=== PATIENT | female | born 1970 | race Two or more races ===

== ENCOUNTER 2024-08-21 07:57 | Inpatient (IN) | payer MEDICAID ==
[~2024-08-21] VITALS: Ht 165.1 cm; Wt 86.6 kg
--- NOTE | 2024-08-21 08:18 | ED.PDOC ---
History of Present Illness HPI Comments 54F presents to the ER w/ no prior Hx associated to the c/c of ABD pain. Pt reports on having Left sided ABD pain which radiates to the left flank w/ periumbilical pain, "for a while", but has had mild pain during urination which is constant but fluctuates w/ pain everyday. Pt states that when she urinates t here is "air" which causes the pain. PMHx of DM and HTN. SHx of . Denies chills, fever, N/V/D, SOB, CP or no other associated symptoms, modifiers, recent injuries or sick contacts at this time. Time Seen by MD: 08:10 Primary Care Provider: unknown Reviewed Notes: Nurses Notes, Medications, Allergies Allergies: Coded Allergies: No Known Drug Allergy (Verified Allergy, Unknown, 03/23/22) Home Meds Reported Medications Insulin Glargine (Lantus Solostar) 100 Unit/Ml Inj, 10 UNITS SC TID 08/21/24 Fenofibrate Micronized (Fenofibrate) 134 Mg Cap, 1 CAP PO DAILY 08/21/24 Gabapentin (Gabapentin) 300 Mg Cap, PO 08/21/24 Amlodipine Besylate (Amlodipine Besylate) 10 Mg Tab, 1 TAB PO DAILY 08/21/24 Information Source: Patient Mode of Arrival: Ambulatory Severity: Moderate Timing: Days Duration: Since onset, Days Prehospital treatment: None Past Medical History PAST MEDICAL HISTORY: DM, HTN 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 Family History Family History: Reviewed,noncontributory to illness, Unknown Social History Smoker: Non-Smoker Alcohol: Denies ETOH Use Drugs: Denies Drug Use Lives In: Home Constitutional: denies: chills, diaphoresis, fatigue, fever, malaise, sweats, weakness, others EENTM: denies: blurred vision, double vision, ear bleeding, ear discharge, ear drainage, ear pain, ear ringing, eye pain, eye redness, hearing loss, mouth pain, mouth swelling, nasal discharge, nose bleeding, nose congestion, nose pain, photophobia, tearing, throat pain, throat swelling, voice changes, others Respiratory: denies: cough, hemoptysis, orthopnea, SOB at rest, shortness of breath, SOB with excertion, stridor, wheezing, others Cardiovascular: denies: chest pain, dizzy spells, diaphoresis, Dyspnea on exertion, edema, irregular heart beat, left arm pain, lightheadedness, palpitations, PND, syncope, others Gastrointestinal: reports: abdominal pain; denies: abdomen distended, blood streaked bowels, constipated, diarrhea, dysphagia, difficulty swallowing, hematemesis, melena, nausea, poor appetite, poor fluid intake, rectal bleeding, rectal pain, vomiting, others Genitourinary: reports: flank pain, pain; denies: abnormal vagina bleeding, burning, dyspareunia, dysuria, frequency, hematuria, incontinence, , vagina discharge, urgency, others Neurological: denies: dizziness, fainting, headache, left sided numbness, left sided weakness, numbness, paresthesia, pre-existing deficit, right sided numbness, right sided weakness, seizure, speech problems, tingling, tremors, weakness, others Musculoskeletal: denies: back pain, gout, joint pain, joint swelling, muscle pain, muscle stiffness, neck pain, others Integumetry: denies: bruises, change in color, change in hair/nails, dryness, laceration, lesions, lumps, rash, wounds, others Allergic/Immunocompromised: denies: Difficulty Healing, Frequent Infections, Hives, Itching, others Hematologic/Lymphatic: denies: anemia, blood clots, easy bleeding, easy bruising, swollen glands, others Endocrine: denies: excessive hunger, excessive sweating, excessive thirst, excessive urination, flushing, intolerance to cold, intolerance to heat, unexplained weight gain, unexplained weight loss, others Psychiatric: denies: anxiety, bipolar disorder, depression, hopeless, panic disorder, schizophrenia, sleepless, suicidal, others All Other Systems: Reviewed and Negative Physical Exam General Appearance: Moderate Distress, Normal HEENT: Normal ENT Inspection, Pharynx Normal, TMs Normal Neck: Full Range of Motion, Non-Tender, Normal, Normal Inspection Respiratory: Chest Non-Tender, Lungs Clear, No Accessory Muscle Use, No Respiratory Distress, Normal Breath Sounds Cardiovascular: No Edema, No JVD, No Murmur, No Gallop, Normal Peripheral Pulses, Regular Rate/Rhythm Breast Exam: Deferred Gastrointestinal: No Organomegaly, Non Tender, No Pulsatile Mass, Normal Bowel Sounds, Soft Genitalia: Deferred Pelvic: Deferred Rectal: Deferred Extremities: No calf tenderness, Normal capillary refill, Normal inspection, Normal range of motion, Non-tender, No pedal edema Musculoskeletal : Apperance: Normal 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 Was a procedure done?: No Differential Dx Considerations may include: Hyperglycemia Electrolyte imbalance X-Ray, Labs, Meds, VS Vital Signs Date Time Temp Pulse Resp B/P (MAP) Pulse Ox O2 Delivery O2 Flow Rate FiO2 08/21/24 09:31 84 16 98 Room Air 08/21/24 09:31 98.5 78 16 147/98 (114) 96 98.5 08/21/24 08:47 84 16 164/96 (118) 98 08/21/24 08:12 98.6 86 16 156/96 (116) 99 98.6 Lab Test 08/21/24 09:40 08/21/24 08:30 08/21/24 08:22 08/21/24 08:19 Range/Units POC Glucose 363 H 468 *H 70-106 mg/dl White Blood Count 5.0 4.4-10.8 10^3/uL Red Blood Count 5.46 H 4.0-5.20 10^6/uL Hemoglobin 14.2 12.2-16.2 g/dL Hematocrit 43.9 36.0-46.0 % Mean Corpuscular Volume 80.4 80.0-100.0 fL Mean Corpuscular Hemoglobin 26.0 L 28.0-32.0 pg Mean Corpuscular Hemoglobin Concent 32.4 32.0-36.0 g/dL Red Cell Distribution Width 13.7 11.8-14.3 % Platelet Count 269 140-450 10^3/uL Mean Platelet Volume 9.2 6.9-10.8 fL Neutrophils (%) (Auto) 46.8 37.0-80.0 % Lymphocytes (%) (Auto) 44.0 10.0-50.0 % Monocytes (%) (Auto) 5.9 0.0-12.0 % Eosinophils (%) (Auto) 2.0 0.0-7.0 % Basophils (%) (Auto) 1.3 0.0-2.0 % Neutrophils # (Auto) 2.3 1.6-8.6 10 ^3/uL Lymphocytes # (Auto) 2.2 0.4-5.4 10 ^3/uL Monocytes # (Auto) 0.3 0-1.3 10 ^3/uL Eosinophils # (Auto) 0.1 0-0.8 10 ^3/uL Basophils # (Auto) 0.1 0-0.2 10 ^3/uL Nucleated Red Blood Cells 0.3 % Sodium Level 128 L 136-145 mmol/L Potassium Level 4.4 3.5-5.1 mmol/L Chloride Level 95 L 98-107 mmol/L Carbon Dioxide Level 25 20-31 mmol/L Anion Gap 8 5-15 Blood Urea Nitrogen 19 9-23 mg/dL Creatinine 1.13 H 0.550-1.02 mg/dL Glomerular Filtration Rate Calc 59 >90 mL/min BUN/Creatinine Ratio 16.8 10.0-20.0 Serum Glucose 474 *H 74-106 mg/dL Hemoglobin A1c > 14.0 H <5.7 % A1C Calcium Level 12.0 H 8.7-10.4 mg/dL Urine Color Colorless Yellow Urine Clarity Clear Clear Urine pH 5.5 5.0-9.0 Urine Specific [place] 1.018 1.001-1.035 Urine Protein Trace H Negative Urine Ketones Negative Negative Urine Blood Negative Negative /uL Urine Nitrite Negative Negative Urine Bilirubin Negative Negative Urine Urobilinogen Normal Negative mg/dL Urine Leukocyte Esterase 1+ Negative /uL Urine RBC 3 0 - 4 /hpf Urine Microscopic WBC 15 H 0-5 /HPF Urine Squamous Epithelial Cells Few <5 /hpf Urine Bacteria Few H None Seen /hpf Urine Glucose 4+ H Normal mg/dL Test 08/21/24 08:17 Range/Units POC Glucose 497 *H 70-106 mg/dl Current Medications Medications (Trade) Dose Ordered Sig/Lamberto Route Start Time Stop Time Status Last Admin Sodium Chloride 1,000 ml @ 1,000 mls/hr Q1H ONCE IV 08/21/24 08:30 08/21/24 09:29 DC 08/21/24 08:54 EXAM: XY CHEST PORTABLE Indication: sob Technique: Single frontal view of the chest was obtained Comparison: XY CHEST PORTABLE on DOS: 10/01/23, CHEST XRAY 1 VIEW on DOS: 07/28/21, CHEST PORTABLE on DOS: 07/27/21, CHEST XRAY 1 VIEW on DOS: 02/11/21 FINDINGS: Lines and Tubes: Cardiac pacemaker left chest wall. Lungs: No focal consolidation. Pleura: No effusion. No pneumothorax. Cardiomediastinal contours: Cardiomegaly. Bones: No acute osseous abnormality. IMPRESSION: No acute cardiopulmonary disease. ABDOMEN AND PELVIS WITHOUT CONTRAST CLINICAL HISTORY: abd pain TECHNIQUE: Multiple contiguous axial images of the abdomen and pelvis without intravenous contrast. The images were reformatted degenerate coronal and sagittal reconstructions. All CT scans at this medical facility are performed using dose modulation techniques as appropriate to a performed exam including the following:Automated exposure control was utilized; adjustment of the MA and/or KV according to patient size; and use of iterative reconstruction technique. Radiation Dose Information: CT Dose: CTDI volume is 13.12 mGy. Dose-length product is 698.21 mGy*cm Comparison: None FINDINGS: Evaluation of the abdomen and pelvis is limited without intravenous contrast. The liver, gallbladder, pancreas, kidneys, adrenal glands, and spleen appear within normal limits. There is no gross evidence of abdominal lymphadenopathy. There is no free fluid or free air. There is a small fat containing umbilical hernia. The stomach grossly appears unremarkable. The small and large bowel loops demonstrate normal caliber and distribution. A normal appearing appendix is seen in the right lower quadrant abdomen. The abdominal aorta and IVC appear within normal limits. The uterus appears within normal limits. There is air seen anteriorly within the bladder.. There is no gross evidence of a pelvic mass. There is no free fluid collection. Lung bases are clear. There is no acute osseous abnormality. IMPRESSION: 1. There is air seen within the bladder. Clinical correlation is recommended. 2. Otherwise, there is no acute process in the abdomen and pelvis. HS:Y Patient alert. Complaining of abdominal pain. Vitals stable. Answering questions. Ambulating. Abdomen is soft nontender. Blood sugar elevated. Establish intravenous access. Was given fluids. Was given insulin. Reviewed her history. Explained to the patient. Continue cardiac monitoring Time of 1ST Reevaluation: 08:40 Reevaluation 1ST: Unchanged Patient Education/Counseling: Diagnosis, Treatment, Prognosis Family Education/Counseling: No Family Present Departure 1 Departure Time of Disposition: 08:23 Impression: Primary Impression: Uncontrolled diabetes mellitus Qualified Codes: E13.65 - Other specified diabetes mellitus with hyperglycemia Disposition: ADMITTED INPATIENT Admit to: Med Surg Condition: Guarded Critical Care Note Critical Care Time?: No Stability Stability form required: No Heart Score Heart Score: Heart Score Response (Comments) Value History N/A 0 EKG N/A 0 Age N/A 0 Risk Factors N/A 0 Troponin N/A 0 Total 0 I personally scribed for DYAN QUINTERO MD ([email or web address]) on 08/21/24 at 08:18. Electronically submitted by Stephan Garcia [email or web address]). I personally scribed for DYAN QUINTERO MD ([email or web address]) on 08/21/24 at 11:35. Electronically submitted by Stephan Garcia ([email or web address]). DYAN QUINTERO MD Aug 21, 2024 08:18
[2024-08-21] MEDS ORDERED: InsuLIN REG 1unit/0.01ml Soln (100units/ml) IV ONE (08:30)
[2024-08-21 08:41] LABS: Basophils # (auto) 0.1 10 ^3/uL (0-0.2); Eosinophils # (auto) 0.1 10 ^3/uL (0-0.8); Monocytes # (auto) 0.3 10 ^3/uL (0-1.3)
[2024-08-21 08:42] LABS: Basophils % (auto) 1.3 % (0.0-2.0); Hematocrit 43.9 % (36.0-46.0); Hemoglobin 14.2 g/dL (12.2-16.2); Lymphocytes # (auto) 2.2 10 ^3/uL (0.4-5.4); Mean Corpuscular Hgb Conc. 32.4 g/dL (32.0-36.0); Mean Corpuscular Volume 80.4 fL (80.0-100.0); Monocytes % (auto) 5.9 % (0.0-12.0); Neutrophils # (auto) 2.3 10 ^3/uL (1.6-8.6); Neutrophils % (auto) 46.8 % (37.0-80.0); Nucleated Red Blood Cells % 0.3 %; Platelet Count (auto) 269 10^3/uL (140-450); Red Blood Cells 5.46 10^6/uL (4.0-5.20); Red Cell Distribution Width 13.7 % (11.8-14.3)
[2024-08-21] MEDS ORDERED: DEXTROSE (50%) 50ML SYRG IV PRN (08:45)
[2024-08-21 08:49] LABS: Potassium 4.4 mmol/L (3.5-5.1)
[2024-08-21 08:50] LABS: Anion Gap 8 (5-15); Carbon Dioxide 25 mmol/L (20-31)
[2024-08-21] MEDS: SODIUM CHLORIDE 0.9% 1,000 ML IV ONE (08:54)
[2024-08-21 08:55] LABS: BUN/Creatinine Ratio 16.8 (10.0-20.0); Blood Urea Nitrogen 19 mg/dL (9-23)
[2024-08-21 09:00] LABS: Urine Bacteria FEW /hpf (None Seen); Urine Blood Negative /uL (Negative); Urine Clarity Clear (Clear); Urine Color Colorless (Yellow); Urine Protein, UAD TRACE (Negative); Urine Specific Gravity 1.018 (1.001-1.035); Urine Squamous Epithelial Cell FEW /hpf (<5); Urine Urobilinogen Normal (Negative); Urine WBC 15 /HPF (0-5); Urine pH 5.5 (5.0-9.0)
[2024-08-21 09:00] LABS: Chloride 95 mmol/L (98-107); Sodium 128 mmol/L (136-145)
[2024-08-21 09:01] LABS: Glucose 474 mg/dL (74-106)
--- NOTE | 2024-08-21 10:05 | DVH ---
CT ABDOMEN AND PELVIS WITHOUT CONTRAST CLINICAL HISTORY: abd pain TECHNIQUE: Multiple contiguous axial images of the abdomen and pelvis without intravenous contrast. T he images were reformatted degenerate coronal and sagittal reconstructions. All CT scans at this medical facility are performed using dose modulation techniques as appropriate t o a performed exam including the following:Automated exposure control was utilized; adjustment of the MA and/or KV according to patient size; and use of iterative reconstruction technique. Radiation Dose Information: CT Dose: CTDI volume is 13.12 mGy. Dose-length product is 698.21 mGy*cm Comparison: None FINDINGS: Evaluation of the abdomen and pelvis is limited without intravenous contrast. The liver, gallbladder, pancreas, kidneys, adrenal glands, and spleen appear within normal limits. There is no gross evidence of abdominal lymphadenopathy. There is no free fluid or free air. There is a small fat containing umbilical hernia. The stomach grossly appears unremarkable. The small and large bowel loops demonstrate normal caliber and distribution. A normal appearing appendix is seen in the right lower quadrant abdomen. The abdominal aorta and IVC appear within normal limits. The uterus appears within normal limits. There is air seen anteriorly within the bladder.. There is no gross evidence of a pelvic mass. There is no free fluid collection. Lung bases are clear. There is no acute osseous abnormality. IMPRESSION: 1. There is air seen within the bladder. Clinical correlation is recommended. 2. Otherwise, there is no acute process in the abdomen and pelvis. HS:Y
[2024-08-21] MEDS ORDERED: ONDANSETRON HCL 4 MG/2 ML VIAL IV PRN (10:30)
[2024-08-21] MEDS: InsuLIN REG 1unit/0.01ml Soln (100units/ml) IV ONE (10:47)
[2024-08-21] MEDS ORDERED: AMLO1TAB23 PO (10:49)
[2024-08-21] MEDS ORDERED: GABA-1250 PO (10:49)
[2024-08-21] MEDS ORDERED: INSUINJ37 SC (10:49)
[2024-08-21] MEDS ORDERED: FENO134C16 PO (10:49)
--- NOTE | 2024-08-21 10:51 | DVHHP2 ---
History of Present Illness Reason for Visit: Abdominal pain History of Present Illness Georgia Couch is a 54-year-old female with past medical history of hypertension, diabetes, and who presents to the ED with abdominal pain that radiates to the left flank. Patient reports that the pain is 3/10 currently poking-like and intermittent. Patient also reports that she has been having dysuria with no urgency or hematuria. Patient denies any chest pain, shortness of breath, recent travels, recent sick contacts, recent ingestion of spoiled food, fever, chills, lightheadedness, weakness, dizziness, nausea vomiting, or diarrhea. Cardiovascular: HTN Endocrine: Diabetes Past Surgical History: Family History: DM, Other (Mom and dad with diabetes) Smoke: No ALCOHOL: none Drugs: None Lives: with Family Domestic Violence: Neg Review of Systems Gastrointestinal: Abdominal Pain Genitourinary: Dysuria Musculoskeletal: other (Left flank pain) Allergies: Coded Allergies: No Known Drug Allergy (Verified Allergy, Unknown, 03/23/22) Medications Current Medications Medications Dose Ordered Sig/Lamberto Route Start Time Stop Time Status Last Admin Dose Admin Diagnostic Test (Pha) 1 strip ACHS 08/21/24 11:30 Insulin Human Regular ACHS SC 08/21/24 11:30 Dextrose 50 ml UD PRN IV 08/21/24 08:45 Exam Vital Signs Vital Signs Date Time Temp Pulse Resp B/P (MAP) Pulse Ox O2 Delivery O2 Flow Rate FiO2 08/21/24 09:31 84 16 98 Room Air 08/21/24 09:31 98.5 147/98 (114) 98.5 General Appearance: Alert, Oriented X3, Cooperative, No acute distress HEENT: Atraumatic, PERRLA, EOMI, Mucous membr. moist/pink Respiratory: Clear to auscultation, Normal air movement Cardiovascular: Normal S1, Normal S2, No murmurs Abdominal: Normal bowel sounds, Soft, No tenderness, No hepatospenomegaly, No masses Extremities: No clubbing, No cyanosis, No edema, Normal pulses, No tenderness/swelling Skin: No rashes, No significant lesion Neuro: Normal gait, Normal speech, Strength at 5/5 X4 ext, Normal tone, Sensation intact Psych/Mental Status: Mental status NL, Mood NL Labs/Xrays Labs Test 08/21/24 09:40 08/21/24 08:30 08/21/24 08:22 Range/Units POC Glucose 363 H 70-106 mg/dl White Blood Count 5.0 4.4-10.8 10^3/uL Red Blood Count 5.46 H 4.0-5.20 10^6/uL Hemoglobin 14.2 12.2-16.2 g/dL Hematocrit 43.9 36.0-46.0 % Mean Corpuscular Volume 80.4 80.0-100.0 fL Mean Corpuscular Hemoglobin 26.0 L 28.0-32.0 pg Mean Corpuscular Hemoglobin Concent 32.4 32.0-36.0 g/dL Red Cell Distribution Width 13.7 11.8-14.3 % Platelet Count 269 140-450 10^3/uL Mean Platelet Volume 9.2 6.9-10.8 fL Neutrophils (%) (Auto) 46.8 37.0-80.0 % Lymphocytes (%) (Auto) 44.0 10.0-50.0 % Monocytes (%) (Auto) 5.9 0.0-12.0 % Eosinophils (%) (Auto) 2.0 0.0-7.0 % Basophils (%) (Auto) 1.3 0.0-2.0 % Neutrophils # (Auto) 2.3 1.6-8.6 10 ^3/uL Lymphocytes # (Auto) 2.2 0.4-5.4 10 ^3/uL Monocytes # (Auto) 0.3 0-1.3 10 ^3/uL Eosinophils # (Auto) 0.1 0-0.8 10 ^3/uL Basophils # (Auto) 0.1 0-0.2 10 ^3/uL Nucleated Red Blood Cells 0.3 % Sodium Level 128 L 136-145 mmol/L Potassium Level 4.4 3.5-5.1 mmol/L Chloride Level 95 L 98-107 mmol/L Carbon Dioxide Level 25 20-31 mmol/L Anion Gap 8 5-15 Blood Urea Nitrogen 19 9-23 mg/dL Creatinine 1.13 H 0.550-1.02 mg/dL Glomerular Filtration Rate Calc 59 >90 mL/min BUN/Creatinine Ratio 16.8 10.0-20.0 Serum Glucose 474 *H 74-106 mg/dL Hemoglobin A1c > 14.0 H <5.7 % A1C Calcium Level 12.0 H 8.7-10.4 mg/dL Urine Color Colorless Yellow Urine Clarity Clear Clear Urine pH 5.5 5.0-9.0 Urine Specific [place] 1.018 1.001-1.035 Urine Protein Trace H Negative Urine Ketones Negative Negative Urine Blood Negative Negative /uL Urine Nitrite Negative Negative Urine Bilirubin Negative Negative Urine Urobilinogen Normal Negative mg/dL Urine Leukocyte Esterase 1+ Negative /uL Urine RBC 3 0 - 4 /hpf Urine Microscopic WBC 15 H 0-5 /HPF Urine Squamous Epithelial Cells Few <5 /hpf Urine Bacteria Few H None Seen /hpf Urine Glucose 4+ H Normal mg/dL CT ABDOMEN AND PELVIS WITHOUT CONTRAST CLINICAL HISTORY: abd pain TECHNIQUE: Multiple contiguous axial images of the abdomen and pelvis without intravenous contrast. The images were reformatted degenerate coronal and sagittal reconstructions. All CT scans at this medical facility are performed using dose modulation techniques as appropriate to a performed exam including the following:Automated exposure control was utilized; adjustment of the MA and/or KV according to patient size; and use of iterative reconstruction technique. Radiation Dose Information: CT Dose: CTDI volume is 13.12 mGy. Dose-length product is 698.21 mGy*cm Comparison: None FINDINGS: Evaluation of the abdomen and pelvis is limited without intravenous contrast. The liver, gallbladder, pancreas, kidneys, adrenal glands, and spleen appear within normal limits. There is no gross evidence of abdominal lymphadenopathy. There is no free fluid or free air. There is a small fat containing umbilical hernia. The stomach grossly appears unremarkable. The small and large bowel loops demonstrate normal caliber and distribution. A normal appearing appendix is seen in the right lower quadrant abdomen. The abdominal aorta and IVC appear within normal limits. The uterus appears within normal limits. There is air seen anteriorly within the bladder.. There is no gross evidence of a pelvic mass. There is no free fluid collection. Lung bases are clear. There is no acute osseous abnormality. IMPRESSION: 1. There is air seen within the bladder. Clinical correlation is recommended. 2. Otherwise, there is no acute process in the abdomen and pelvis. Assessment/Plan Assessment/Plan Assessment Intractable abdominal pain Left-sided flank pain Hyponatremia UTI EVANS Diabetes type 2 uncontrolled History of hypertension History of Plan Admit to med surge UA NS 1 L given ED Insulin given ED CT abdomen and pelvis IV antibiotics-ceftriaxone Hemoglobin A1c ISS and Accu-Cheks Lantus TID Ultrasound kidney IV fluids Fluid restrictions DVT prophylaxis-Lovenox PUD prophylaxis-not indicated no history of GERD or GI bleed Home medications reconciled Discussed plan of care with patient and nurse Plan discussed with: Patient My Orders Orders - ZAKIYA LONG Procedure Category Date Status Time Ct Ab Pel Wo Con-No CT 08/21/24 Resulted Oral Or Iv 08:30 Glucose Blood PHA 08/21/24 In Process (Accu-Chek Comfort 11:30 Insulin R (Human) PHA 08/21/24 In Process (Insulin R) 11:30 Dextrose 50% Syringe PHA 08/21/24 In Process 08:45 Date of Service: Aug 21, 2024 Billing Provider: ZAKIYA LONG Common Visit Codes: [id number] INP/OBS CARE (HIGH) ZAKIYA LONG Aug 21, 2024 10:51
--- NOTE | 2024-08-21 11:16 | DVH ---
RENAL ULTRASOUND CLINICAL HISTORY: flank pain TECHNIQUE: Multiple ultrasound images of the kidneys and bladder were obtained. COMPARISON: None FINDINGS: The right kidney measures 11.6 cm in length. The left kidney measures 11.5 cm. There is mild right re nal pelviectasis. There is no sonographic evidence of nephrolithiasis. There is no left hydronephrosi s. The bladder appears within normal limits with prevoid volume measuring 349 cc. IMPRESSION: 1. Mild right renal pelviectasis. There is no sonographic evidence of nephrolithiasis. HS:Y
[2024-08-21] MEDS: ENOXAPARIN SOD 40 MG/0.4 ML SYRINGE SC SCH (11:23)
[2024-08-21] MEDS: cefTRIAXone 1GM/50ML D5W 50 ML IV SCH (11:31)
[2024-08-21 11:45] VITALS: PULSE 82; RESP 16; O2SAT 97
[2024-08-21 13:19] VITALS: BP 156/79; PULSE 73; RESP 18; TEMP 98.2; O2SAT 95
[2024-08-21] MEDS: InsuLIN REG 1unit/0.01ml Soln (100units/ml) SC SCH (13:25)
[2024-08-21] MEDS: ACCU-CHEK COMFORT CURVE STRIP VI SCH (13:26)
[2024-08-21] MEDS: GABAPENTIN 300 MG CAP PO SCH (14:08)
[2024-08-21 17:00] VITALS: BP 140/84; PULSE 66; RESP 18; TEMP 97.9; O2SAT 99
[2024-08-21 20:00] VITALS: PULSE 72; RESP 18; O2SAT 95
[2024-08-21] MEDS: HYDROcodone-ACET 5/325MG TAB PO PRN (20:11)
[2024-08-21 21:00] VITALS: BP 147/92; PULSE 72; RESP 18; TEMP 98.2; O2SAT 95
[2024-08-21] MEDS: INSULIN LANTUS (GLARGINE) 1 /0.01ml (100units/ml) SC SCH (22:17)
[2024-08-22 01:00] VITALS: BP 123/71; PULSE 64; RESP 20; TEMP 97.6; O2SAT 97
[2024-08-22 04:37] LABS: Eosinophils # (auto) 0.2 10 ^3/uL (0-0.8); Lymphocytes # (auto) 2.5 10 ^3/uL (0.4-5.4); Monocytes # (auto) 0.3 10 ^3/uL (0-1.3); Neutrophils # (auto) 1.5 10 ^3/uL (1.6-8.6); Neutrophils % (auto) 33.6 % (37.0-80.0); White Blood Cell 4.5 10^3/uL (4.4-10.8)
[2024-08-22 04:41] LABS: Basophils # (auto) 0 10 ^3/uL (0-0.2); Basophils % (auto) 0.9 % (0.0-2.0); Eosinophils % (auto) 3.5 % (0.0-7.0); Hemoglobin 14.4 g/dL (12.2-16.2); Lymphocytes % (auto) 55.7 % (10.0-50.0); Mean Corpuscular Hgb Conc. 32.7 g/dL (32.0-36.0); Mean Corpuscular Volume 79.5 fL (80.0-100.0); Monocytes % (auto) 6.3 % (0.0-12.0); Nucleated Red Blood Cells % 0.7 %; Platelet Count (auto) 267 10^3/uL (140-450); Red Blood Cells 5.54 10^6/uL (4.0-5.20); Red Cell Distribution Width 13.7 % (11.8-14.3)
[2024-08-22 04:55] VITALS: BP 136/86; PULSE 69; RESP 18; TEMP 98.3; O2SAT 98
[2024-08-22 05:05] LABS: Alanine Aminotransferase 34 U/L (7-40); Albumin 4.4 g/dL (3.2-4.8)
[2024-08-22 05:06] LABS: Anion Gap 8 (5-15); Aspartate Aminotransferase 29 U/L (13-40); BUN/Creatinine Ratio 21.8 (10.0-20.0); Bilirubin, Total 0.5 mg/dL (0.2-1.0); Blood Urea Nitrogen 17 mg/dL (9-23); Carbon Dioxide 28 mmol/L (20-31); Potassium 3.8 mmol/L (3.5-5.1); Total Protein 8.2 g/dL (5.7-8.2)
[2024-08-22 05:53] LABS: Sodium 134 mmol/L (136-145)
[2024-08-22 05:54] LABS: Alkaline Phosphatase 174 U/L (46-116); Calcium 11.8 mg/dL (8.7-10.4); Chloride 98 mmol/L (98-107); Glucose 209 mg/dL (74-106)
[2024-08-22 08:08] VITALS: BP 140/89; PULSE 70; RESP 18; TEMP 98.5; O2SAT 98
[2024-08-22] MEDS: MORPHINE SULFATE INJ 2 MG/ml SYRG IV PRN (08:27)
[2024-08-22] MEDS: amLODIPine BESYLATE 5 MG TAB PO SCH (10:22)
[2024-08-22] MEDS: ENOXAPARIN SOD 40 MG/0.4 ML SYRINGE SC SCH (10:23)
--- NOTE | 2024-08-22 13:35 | DVHPN2 ---
Subjective I am Assuming the care of the patient was from today onwards. This is a 54-year-old female with a known history of hypertension insulin-dependent diabetes mellitus type 2 who initially present with the hospital with a left flank pain on and off for last three months, worsening for last few days. Patient was also complaining of passing air in the urine and dysuria. Changes from previous H/P or p: Changes Gastrointestinal: Abdominal Pain Genitourinary: Dysuria Musculoskeletal: other (Left flank pain) Objective Vitals Vital Signs Date Time Temp Pulse Resp B/P (MAP) Pulse Ox O2 Delivery O2 Flow Rate FiO2 08/22/24 10:22 102/60 08/22/24 08:57 76 18 08/22/24 08:08 98.5 98 98.5 08/21/24 20:00 Room Air* 0 21 Intake/Output Intake and Output 08/22/24 07:00 Intake Total 1150 ml Balance 1150 ml Intake Oral 100 ml IV Total 1050 ml # Voids 2 Exam HEENT pupils are reactive Neck is supple CV is S1-S2 regular rate and rhythm Respiratory viral clear GI posterior bowel sounds, soft nondistended, nontender diffusely but positive left CVA tenderness Extremity no edema [employer]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 Medications Current Medications Medications Dose Ordered Sig/Lamberto Route Start Time Stop Time Status Last Admin Dose Admin Diagnostic Test (Pha) 1 strip ACHS 08/21/24 11:30 08/22/24 11:30 1 STRIP Insulin Human Regular ACHS SC 08/21/24 11:30 08/22/24 11:36 8 UNITS Dextrose 50 ml UD PRN IV 08/21/24 08:45 Acetaminophen/ Hydrocodone Bitart 1 tab Q4HP PRN PO 08/21/24 10:30 08/21/24 20:11 1 TAB Ondansetron HCl 4 mg Q4HP PRN IV 08/21/24 10:30 Enoxaparin Sodium 40 mg DAILY SC 08/22/24 10:00 08/22/24 10:23 40 MG Acetaminophen 650 mg Q6HP PRN PO 08/21/24 10:30 Morphine Sulfate 2 mg Q4HPRN PRN IV 08/21/24 10:30 08/22/24 08:27 2 MG Ceftriaxone Sodium 50 ml @ 100 mls/hr DAILY@09 IV 08/21/24 10:45 08/22/24 08:27 100 MLS/HR Gabapentin 300 mg TID PO 08/21/24 14:00 08/22/24 06:19 300 MG Amlodipine Besylate 10 mg DAILY PO 08/22/24 10:00 08/22/24 10:22 10 MG Patient Own Medication 1 cap HS PO 08/21/24 22:00 Insulin Glargine 10 units TID SC 08/21/24 22:00 08/22/24 06:22 10 UNITS Patient Own Medication 1 gm Q8HR IV 08/22/24 14:00 UNV Laboratory Results Laboratory Tests 08/22/24 04:05 Chemistry Test 08/22/24 04:05 Albumin 4.4 g/dL (3.2-4.8) Calcium Level 11.8 mg/dL (8.7-10.4) H Total Protein 8.2 g/dL (5.7-8.2) LFT Test 08/22/24 04:05 Alanine Aminotransferase (ALT) 34 U/L (7-40) Alkaline Phosphatase 174 U/L (46-116) H Aspartate Amino Transferase (AST) 29 U/L (13-40) Total Bilirubin 0.5 mg/dL (0.2-1.0) Urinalysis Test 08/21/24 08:22 Urine Color Colorless (Yellow) Urine Clarity Clear (Clear) Urine pH 5.5 (5.0-9.0) Urine Specific [place] 1.018 (1.001-1.035) Urine Protein Trace (Negative) H Urine Ketones Negative (Negative) Urine Blood Negative /uL (Negative) Urine Nitrite Negative (Negative) Urine Bilirubin Negative (Negative) Urine Urobilinogen Normal mg/dL (Negative) Urine Leukocyte Esterase 1+ /uL (Negative) Urine RBC 3 /hpf (0 - 4) Urine Microscopic WBC 15 /HPF (0-5) H Urine Squamous Epithelial Cells Few /hpf (<5) Urine Bacteria Few /hpf (None Seen) H Urine Glucose 4+ mg/dL (Normal) H Assessment/Plan Assessment/Plan 54-year-old female with a known history of diabetes mellitus type 2 insulin dependent, hypertension initially admitted to the hospital with left flank pain on and off for last three months found to have 1. Left flank pain with the air in the urine rule out emphysematous cystitis 2. UTI, clinical suspicion of emphysematous cystitis 3. Hyperglycemia in the setting of insulin-dependent diabetes mellitus type 2 4. Hypertension -UA, urine culture, broad-spectrum IV antibiotics, infectious disease and urology consultation -CT abdomen with the p.o. and IV contrast. Plan discussed with: Patient My Orders Orders - RUBI PAULINO MD Procedure Category Date Status Time * Urology Consult CONS 08/22/24 Transmitted 12:47 * Infectious Oscar- Dr. CONS 08/22/24 Transmitted [place] 13:06 Cystogram XY 08/24/24 Logged 07:00 (Nf) Ertapenem PHA 08/22/24 Logged 14:[address] Ct Abd Pelvis W CT 08/22/24 Logged Con-Oral & Iv 13:24 Date of Service: Aug 22, 2024 Billing Provider: RUBI PAULINO MD Common Visit Codes: [id number] INP/OBS CARE(HIGH) RUBI PAULINO MD Aug 22, 2024 13:35
[2024-08-22 13:37] VITALS: BP 130/77; PULSE 70; RESP 18; TEMP 98.1; O2SAT 97
[2024-08-22] MEDS ORDERED: ERTAPENEM 1 GM IV SCH (14:00)
--- NOTE | 2024-08-22 14:34 | DVHINCON2 ---
Date of service: Aug 22, [address] Us Reason for Consultation UTI History of Present Illness Patient is a 54-year-old female with past medical history of presents to the hospital with complaints of abdominal pain that radiates to the left flank. Patient rates pain at 3/10 currently poking-like and intermittent. Patient also reports that she has been having dysuria with no urgency or hematuria. Patient states that when she urinates there is "air" which causes the pain. She denies any chest pain, shortness of breath, recent travels, recent sick contacts, recent ingestion of spoiled food, fever, chills, lightheadedness, weakness, dizziness, nausea vomiting, or diarrhea. Past Medical History Patient's past medical history is significant for Hypertension and Diabetes mellitus. Past Surgical History Past Surgical History: Family History: Diabetes mellitus G8 MOTHER G8 FATHER Social History Smoke: No ALCOHOL: none Drugs: None Lives: with Family Domestic Violence: Neg Allergies: Coded Allergies: No Known Drug Allergy (Verified Allergy, Unknown, 03/23/22) Home Meds Reported Medications Insulin Glargine (Lantus Solostar) 100 Unit/Ml Inj, 10 UNITS SC TID 08/21/24 Fenofibrate Micronized (Fenofibrate) 134 Mg Cap, 1 CAP PO DAILY 08/21/24 Gabapentin (Gabapentin) 300 Mg Cap, PO 08/21/24 Amlodipine Besylate (Amlodipine Besylate) 10 Mg Tab, 1 TAB PO DAILY 08/21/24 Current Medications Current Medications Medications (Trade) Dose Ordered Sig/Lamberto Route PRN Reason Start Time Stop Time Status Last Admin Enoxaparin Sodium (Lovenox) 40 mg DAILY SC 08/22/24 10:00 08/22/24 10:23 Amlodipine Besylate (Norvasc Tablet) 10 mg DAILY PO 08/22/24 10:00 08/22/24 10:22 Patient Own Medication 1 cap HS PO 08/21/24 22:00 Insulin Glargine (Lantus) 10 units TID SC 08/21/24 22:00 08/22/24 06:22 Piperacillin Sod/ Tazobactam Sod 100 ml @ 25 mls/hr Q6HR IV 08/22/24 18:00 08/22/24 13:24 DC Patient Own Medication 1 gm Q8HR IV 08/22/24 14:00 08/22/24 14:08 DC Meropenem 50 ml @ 17 mls/hr Q8HR IV 08/22/24 22:00 UNV Review of Systems General: No Fever, chills, night sweats or weight loss HEENT: No Sinus pain, headache, vision changes or sore throat Respiratory: No Cough, dyspnea, sputum production Cardiovascular: No Chest pain, palpitations or leg edema Gastrointestinal: Reports Abdominal Pain. No Nausea, vomiting, diarrhea Genitourinary: Reports Dysuria. No urinary frequency, hematuria, pelvic pain Skin: No Rashes, ulcers, abscesses, redness or swelling Musculoskeletal: Reports Left flank pain No Joint pain, muscle pain or swelling Neurologic: No Altered mental status, headaches or focal neurological deficits Psychiatric: No Anxiety, depression or confusion Vital Signs Vital Signs Date Time Temp Pulse Resp B/P (MAP) Pulse Ox O2 Delivery O2 Flow Rate FiO2 08/22/24 13:37 98.1 70 18 130/77 (94) 97 98.1 08/21/24 20:00 Room Air* 0 21 Physical Exam General Appearance: Alert, Oriented X3, Cooperative, No acute distress HEENT: Atraumatic, PERRLA, EOMI, Mucous membr. moist/pink Respiratory: Clear to auscultation, Normal air movement Cardiovascular: Normal S1, Normal S2, No murmurs Abdominal: Normal bowel sounds, Soft, No tenderness, No hepatospenomegaly, No masses Extremities: No clubbing, No cyanosis, No edema, Normal pulses, No tenderness/swelling Skin: No rashes, No significant lesion Neuro: Normal gait, Normal speech, Strength at 5/5 X4 ext, Normal tone, Sensation intact Psych/Mental Status: Mental status NL, Mood NL Labs/Diagnostic Data Labs Test 08/22/24 14:13 08/22/24 04:05 08/21/24 08:30 08/21/24 08:22 Range/Units POC Glucose 301 H 70-106 mg/dl White Blood Count 4.5 4.4-10.8 10^3/uL Red Blood Count 5.54 H 4.0-5.20 10^6/uL Hemoglobin 14.4 12.2-16.2 g/dL Hematocrit 44.0 36.0-46.0 % Mean Corpuscular Volume 79.5 L 80.0-100.0 fL Mean Corpuscular Hemoglobin 26.0 L 28.0-32.0 pg Mean Corpuscular Hemoglobin Concent 32.7 32.0-36.0 g/dL Red Cell Distribution Width 13.7 11.8-14.3 % Platelet Count 267 140-450 10^3/uL Mean Platelet Volume 9.2 6.9-10.8 fL Neutrophils (%) (Auto) 33.6 L 37.0-80.0 % Lymphocytes (%) (Auto) 55.7 H 10.0-50.0 % Monocytes (%) (Auto) 6.3 0.0-12.0 % Eosinophils (%) (Auto) 3.5 0.0-7.0 % Basophils (%) (Auto) 0.9 0.0-2.0 % Neutrophils # (Auto) 1.5 L 1.6-8.6 10 ^3/uL Lymphocytes # (Auto) 2.5 0.4-5.4 10 ^3/uL Monocytes # (Auto) 0.3 0-1.3 10 ^3/uL Eosinophils # (Auto) 0.2 0-0.8 10 ^3/uL Basophils # (Auto) 0 0-0.2 10 ^3/uL Nucleated Red Blood Cells 0.7 % Sodium Level 134 #L 136-145 mmol/L Potassium Level 3.8 3.5-5.1 mmol/L Chloride Level 98 98-107 mmol/L Carbon Dioxide Level 28 20-31 mmol/L Anion Gap 8 5-15 Blood Urea Nitrogen 17 9-23 mg/dL Creatinine 0.78 # 0.550-1.02 mg/dL Glomerular Filtration Rate Calc 91 >90 mL/min BUN/Creatinine Ratio 21.8 H 10.0-20.0 Serum Glucose 209 H 74-106 mg/dL Calcium Level 11.8 H 8.7-10.4 mg/dL Total Bilirubin 0.5 0.2-1.0 mg/dL Aspartate Amino Transferase (AST) 29 13-40 U/L Alanine Aminotransferase (ALT) 34 7-40 U/L Alkaline Phosphatase 174 H 46-116 U/L Total Protein 8.2 5.7-8.2 g/dL Albumin 4.4 3.2-4.8 g/dL Hemoglobin A1c > 14.0 H <5.7 % A1C Urine Color Colorless Yellow Urine Clarity Clear Clear Urine pH 5.5 5.0-9.0 Urine Specific [place] 1.018 1.001-1.035 Urine Protein Trace H Negative Urine Ketones Negative Negative Urine Blood Negative Negative /uL Urine Nitrite Negative Negative Urine Bilirubin Negative Negative Urine Urobilinogen Normal Negative mg/dL Urine Leukocyte Esterase 1+ Negative /uL Urine RBC 3 0 - 4 /hpf Urine Microscopic WBC 15 H 0-5 /HPF Urine Squamous Epithelial Cells Few <5 /hpf Urine Bacteria Few H None Seen /hpf Urine Glucose 4+ H Normal mg/dL Assessment Patient is a 54-year-old female presents to the hospital with: UTI Intractable abdominal pain Left-sided flank pain Hyponatremia EVANS Diabetes type 2 uncontrolled History of hypertension History of Recommendations: Continue Meropenem Patient is afebrile Patient need repeat CT Antibiotic status: Meropenem IV [Started on 08/22 - Ongoing] 08/22, Abdomen/Pelvis CT showed No findings of bowel obstruction.No hydr onephrosis. Contrast is opacifying the renal parenchyma but there is no contrast or gas in the collecting system. Gas is noted in the bladder. The bladder is urine distended findings are still consistent with emphysematous cystitis unimproved from 08/21/2024. There does not appear to be any fistulous tract or contrast from the small bowel is communicating with the bladder. A 3.1 cm soft tissue mass in the subcutaneous fat overlying the right gluteal area posteriorly tissue density is 25 Hounsfield units. 08/21, Renal US showed Mild right renal pelviectasis. There is no sonographic evidence of nephrolithiasis. Thank you for consult. ROBERTA GRIFFITHS MD Aug 22, 2024 14:34
[2024-08-22] MEDS: GASTROGRAFIN 30 ML SOL ONE (14:48)
[2024-08-22] MEDS: MEROPENEM 1GM IVPB 50 ML IV ONE (16:57)
[2024-08-22] MEDS: IOHEXOL 300 MG/ML 100ML BOTTLE IJ ONE (17:08)
[2024-08-22] MEDS ORDERED: PIPERACILLIN-TAZOB 3.375GM 100 ML IV SCH (18:00)
--- NOTE | 2024-08-22 18:01 | DVH ---
Exam: CT CT ABD PELVIS W CON-ORAL IV History: Rule out emphysematous cystitis Comparison Study: None available at time of dictation. Contrast: Type of contrast: Omnipaque 300 Contrast injected: 99 mL. Contrast wasted: 0 TECHNIQUE: A digital patient financial services manager image was obtained. During the uneventful, intravenous administration of c ontrast material, multislice data acquisition was obtained through the abdomen and pelvis. The data s et was subsequently reconstructed into axial images. Images were reviewed on a work station using a c ombination of axial and multiplanar using a variety of window levels and settings. Radiation Dose Information: CT Dose: CTDI volume is 16.91 mGy. Dose-length product is 1034.06 mGy*cm FINDINGS: Lung Bases: No acute or significant lung base finding. Normal heart size. No pleural or pericardial effusion. Liver: The liver is normal in size. No focal lesions. Normal hepatic vascular enhancement. Gallbladder and Biliary Tree: Unremarkable Spleen: Unremarkable Pancreas: The pancreas is normal in appearance without focal lesions or abnormal enhancement. Adrenal Glands: Unremarkable Kidneys: Kidneys demonstrate normal symmetric enhancement without focal lesions, calculi or hydroneph rosis. Inguinal contrast is noted in both kidneys however there is no contrast in the collecting syst em or ureters. Bladder: Persistent air in the bladder unimproved from 08/21/2024. Possibility of emphysematous cysti tis is still in the differential. There is no in the bladder to suggest communication with small niom l. Bowel: The stomach is grossly normal in appearance. Small bowel and colon are normal in caliber and d istribution. The appendix is not visualized; however, no secondary findings of acute appendicitis acacia ntified. Ascites: Absent Lymphadenopathy: No mesenteric, retroperitoneal or periportal lymphadenopathy. Abdominal Wall and Mesentery: Unremarkable. Vasculature: The visualized abdominal aorta is normal in size and caliber. Abdominal and pelvic vess els demonstrate normal enhancement. Pelvic Organs: Unremarkable Musculoskeletal: No aggressive focal bony lesions, acute fractures or dislocation. Soft tissues: In the subcutaneous fat right hip posteriorly is a 3.5 cm well-circumscribed mass with tissue density 25 Hounsfield units. IMPRESSION: 1. No CT findings of bowel obstruction. 2. No hydronephrosis. Contrast is opacifying the renal parenchyma but there is no contrast or gas in the collecting system. 3. Gas is noted in the bladder. The bladder is urine distended findings are still consistent with em physematous cystitis unimproved from 08/21/2024. 4. There does not appear to be any fistulous tract or contrast from the small bowel is communicating with the bladder. 5. A 3.1 cm soft tissue mass in the subcutaneous fat overlying the right gluteal area posteriorly tis odilon density is 25 Hounsfield units. This appears unchanged from 08/21/2024. All CT scans at this medical facility are performed using dose modulation techniques as appropriate t o a performed exam including the following: Automated exposure control was utilized; adjustment of th e MA and/or KV according to patient size; and use of iterative reconstruction technique. HS:Y
--- NOTE | 2024-08-22 18:34 | DVHINCON2 ---
Date of service: Aug 22, 2024 Referring Physician Magen Reason for Consultation emphysematous cystitis History of Present Illness 54F admitted to [facility] with left sided ABD pain. Pt reports on having Left sided ABD pain which radiates to the left flank w/ periumbilical pain, "for a while", but has had mild pain during urination which is constant but fluctuates w/ pain everyday. Pt states that when she urinates there is "air" which causes the pain. PMHx of DM and HTN. SHx of . Denies chills, fever, N/V/D, SOB, CP or no other associated symptoms, modifiers, recent injuries or sick contacts at this time. Primary Care Provider: unknown Reviewed Notes: Nurses Notes, Medications, Allergies Allergies: Coded Allergies: No Known Drug Allergy (Verified Allergy, Unknown, 03/23/22) Home Meds Reported Medications Insulin Glargine (Lantus Solostar) 100 Unit/Ml Inj, 10 UNITS SC TID 08/21/24 Fenofibrate Micronized (Fenofibrate) 134 Mg Cap, 1 CAP PO DAILY 08/21/24 Gabapentin (Gabapentin) 300 Mg Cap, PO 08/21/24 Amlodipine Besylate (Amlodipine Besylate) 10 Mg Tab, 1 TAB PO DAILY 08/21/24 Information Source: Patient Mode of Arrival: Ambulatory Severity: Moderate Timing: Days Duration: Since onset, Days Prehospital treatment: None Past Medical History DM, HTN Past Surgical History PST MANAGER History: Unknown Family History: Diabetes mellitus G8 MOTHER G8 FATHER Allergies: Coded Allergies: No Known Drug Allergy (Verified Allergy, Unknown, 03/23/22) Home Meds Reported Medications Insulin Glargine (Lantus Solostar) 100 Unit/Ml Inj, 10 UNITS SC TID 08/21/24 Fenofibrate Micronized (Fenofibrate) 134 Mg Cap, 1 CAP PO DAILY 08/21/24 Gabapentin (Gabapentin) 300 Mg Cap, PO 08/21/24 Amlodipine Besylate (Amlodipine Besylate) 10 Mg Tab, 1 TAB PO DAILY 08/21/24 Current Medications Current Medications Medications (Trade) Dose Ordered Sig/Lamberto Route PRN Reason Start Time Stop Time Status Last Admin Enoxaparin Sodium (Lovenox) 40 mg DAILY SC 08/22/24 10:00 08/22/24 10:23 Amlodipine Besylate (Norvasc Tablet) 10 mg DAILY PO 08/22/24 10:00 08/22/24 10:22 Patient Own Medication 1 cap HS PO 08/21/24 22:00 Insulin Glargine (Lantus) 10 units TID SC 08/21/24 22:00 08/22/24 15:17 Piperacillin Sod/ Tazobactam Sod 100 ml @ 25 mls/hr Q6HR IV 08/22/24 18:00 08/22/24 13:24 DC Patient Own Medication 1 gm Q8HR IV 08/22/24 14:00 08/22/24 14:08 DC Meropenem 50 ml @ 17 mls/hr Q8HR IV 08/22/24 22:00 Sodium Chloride 1,000 ml @ 150 mls/hr Q6H40M IV 08/22/24 18:30 Review of Systems Constitutional: denies: chills, diaphoresis, fatigue, fever, malaise, sweats, weakness, others EENTM: denies: blurred vision, double vision, ear bleeding, ear discharge, ear drainage, ear pain, ear ringing, eye pain, eye redness, hearing loss, mouth pain, mouth swelling, nasal discharge, nose bleeding, nose congestion, nose pain, photophobia, tearing, throat pain, throat swelling, voice changes, others Respiratory: denies: cough, hemoptysis, orthopnea, SOB at rest, shortness of breath, SOB with excertion, stridor, wheezing, others Cardiovascular: denies: chest pain, dizzy spells, diaphoresis, Dyspnea on exertion, edema, irregular heart beat, left arm pain, lightheadedness, palpitations, PND, syncope, others Gastrointestinal: reports: abdominal pain; denies: abdomen distended, blood streaked bowels, constipated, diarrhea, dysphagia, difficulty swallowing, hematemesis, melena, nausea, poor appetite, poor fluid intake, rectal bleeding, rectal pain, vomiting, others Genitourinary: reports: flank pain, pain; denies: abnormal vagina bleeding, burning, dyspareunia, dysuria, frequency, hematuria, incontinence, , vagina discharge, urgency, others Neurological: denies: dizziness, fainting, headache, left sided numbness, left sided weakness, numbness, paresthesia, pre-existing deficit, right sided numbness, right sided weakness, seizure, speech problems, tingling, tremors, weakness, others Musculoskeletal: denies: back pain, gout, joint pain, joint swelling, muscle pain, muscle stiffness, neck pain, others Integumetry: denies: bruises, change in color, change in hair/nails, dryness, laceration, lesions, lumps, rash, wounds, others Allergic/Immunocompromised: denies: Difficulty Healing, Frequent Infections, Hives, Itching, others Hematologic/Lymphatic: denies: anemia, blood clots, easy bleeding, easy bruising, swollen glands, others Endocrine: denies: excessive hunger, excessive sweating, excessive thirst, excessive urination, flushing, intolerance to cold, intolerance to heat, unexplained weight gain, unexplained weight loss, others Psychiatric: denies: anxiety, bipolar disorder, depression, hopeless, panic disorder, schizophrenia, sleepless, suicidal, others All Other Systems: Reviewed and Negative Vital Signs Vital Signs Date Time Temp Pulse Resp B/P (MAP) Pulse Ox O2 Delivery O2 Flow Rate FiO2 08/22/24 13:37 98.1 70 18 130/77 (94) 97 98.1 08/21/24 20:00 Room Air* 0 21 Physical Exam General Appearance: Moderate Distress, Normal HEENT: Normal ENT Inspection, Pharynx Normal, TMs Normal Neck: Full Range of Motion, Non-Tender, Normal, Normal Inspection Respiratory: Chest Non-Tender, Lungs Clear, No Accessory Muscle Use, No Respiratory Distress, Normal Breath Sounds Cardiovascular: No Edema, No JVD, No Murmur, No Gallop, Normal Peripheral Pulses, Regular Rate/Rhythm Breast Exam: Deferred Gastrointestinal: No Organomegaly, Non Tender, No Pulsatile Mass, Normal Bowel Sounds, Soft Genitalia: Deferred Pelvic: Deferred Rectal: Deferred Extremities: No calf tenderness, Normal capillary refill, Normal inspection, Normal range of motion, Non-tender, No pedal edema Musculoskeletal : Apperance: Normal Neurologic: Alert, lacquer pin press operator II-XII nml as Tested, No Motor Deficits, Normal Affect, Normal Mood, No Sensory Deficits Cerebellar Function: Normal Reflexes: Normal Skin: Dry, Normal Color, Warm Peripheral Pulses: 3+ Radial (R), 3+ Radial (L) Lymphatic: No Adenopathy Labs/Diagnostic Data Labs Test 08/22/24 17:29 08/22/24 04:05 08/21/24 08:30 08/21/24 08:22 Range/Units POC Glucose 265 H 70-106 mg/dl White Blood Count 4.5 4.4-10.8 10^3/uL Red Blood Count 5.54 H 4.0-5.20 10^6/uL Hemoglobin 14.4 12.2-16.2 g/dL Hematocrit 44.0 36.0-46.0 % Mean Corpuscular Volume 79.5 L 80.0-100.0 fL Mean Corpuscular Hemoglobin 26.0 L 28.0-32.0 pg Mean Corpuscular Hemoglobin Concent 32.7 32.0-36.0 g/dL Red Cell Distribution Width 13.7 11.8-14.3 % Platelet Count 267 140-450 10^3/uL Mean Platelet Volume 9.2 6.9-10.8 fL Neutrophils (%) (Auto) 33.6 L 37.0-80.0 % Lymphocytes (%) (Auto) 55.7 H 10.0-50.0 % Monocytes (%) (Auto) 6.3 0.0-12.0 % Eosinophils (%) (Auto) 3.5 0.0-7.0 % Basophils (%) (Auto) 0.9 0.0-2.0 % Neutrophils # (Auto) 1.5 L 1.6-8.6 10 ^3/uL Lymphocytes # (Auto) 2.5 0.4-5.4 10 ^3/uL Monocytes # (Auto) 0.3 0-1.3 10 ^3/uL Eosinophils # (Auto) 0.2 0-0.8 10 ^3/uL Basophils # (Auto) 0 0-0.2 10 ^3/uL Nucleated Red Blood Cells 0.7 % Sodium Level 134 #L 136-145 mmol/L Potassium Level 3.8 3.5-5.1 mmol/L Chloride Level 98 98-107 mmol/L Carbon Dioxide Level 28 20-31 mmol/L Anion Gap 8 5-15 Blood Urea Nitrogen 17 9-23 mg/dL Creatinine 0.78 # 0.550-1.02 mg/dL Glomerular Filtration Rate Calc 91 >90 mL/min BUN/Creatinine Ratio 21.8 H 10.0-20.0 Serum Glucose 209 H 74-106 mg/dL Calcium Level 11.8 H 8.7-10.4 mg/dL Total Bilirubin 0.5 0.2-1.0 mg/dL Aspartate Amino Transferase (AST) 29 13-40 U/L Alanine Aminotransferase (ALT) 34 7-40 U/L Alkaline Phosphatase 174 H 46-116 U/L Total Protein 8.2 5.7-8.2 g/dL Albumin 4.4 3.2-4.8 g/dL Hemoglobin A1c > 14.0 H <5.7 % A1C Urine Color Colorless Yellow Urine Clarity Clear Clear Urine pH 5.5 5.0-9.0 Urine Specific [place] 1.018 1.001-1.035 Urine Protein Trace H Negative Urine Ketones Negative Negative Urine Blood Negative Negative /uL Urine Nitrite Negative Negative Urine Bilirubin Negative Negative Urine Urobilinogen Normal Negative mg/dL Urine Leukocyte Esterase 1+ Negative /uL Urine RBC 3 0 - 4 /hpf Urine Microscopic WBC 15 H 0-5 /HPF Urine Squamous Epithelial Cells Few <5 /hpf Urine Bacteria Few H None Seen /hpf Urine Glucose 4+ H Normal mg/dL Assessment Emphysematous cystitis "air in the bladder" Plan/Recommendation Jin to gravity - patient refusing Cystogram May removed if urine culture negative and when ready for discharge Plan discussed with: Patient, Other SHERRON BLANC MD Aug 22, 2024 18:34
[2024-08-22] MEDS: SODIUM CHLORIDE 0.9% 1,000 ML IV SCH (18:57)
[2024-08-22 20:00] VITALS: PULSE 70; PULSE 71; RESP 17; O2SAT 96
[2024-08-22 21:00] VITALS: BP 130/77; PULSE 71; RESP 17; TEMP 97.7; O2SAT 96
[2024-08-22] MEDS: MEROPENEM 1GM IVPB 50 ML IV SCH (21:11)
[2024-08-23] VITALS (7 sets, daily range): BP systolic 115–157; BP diastolic 73–94; PULSE 67–82; RESP 15–19; TEMP 97.9–99.7; O2SAT 92–98
[2024-08-23] MEDS: DOCUSATE SOD 100 MG CAP PO PRN (02:22)
--- NOTE | 2024-08-23 16:03 | DVHPN2 ---
Subjective Overnight events noted. Patient does not have Jin catheter. Folic acid was recommended as patient was initially refusing. Patient currently eating her lunch and tolerating diet. Changes from previous H/P or p: No Changes Gastrointestinal: Abdominal Pain Genitourinary: Dysuria Musculoskeletal: other (Left flank pain) Objective Vitals Vital Signs Date Time Temp Pulse Resp B/P (MAP) Pulse Ox O2 Delivery O2 Flow Rate FiO2 08/23/24 13:00 97.9 72 19 149/83 (105) 97 97.9 08/23/24 08:05 Room Air* 0 21 Intake/Output Intake and Output 08/23/24 07:00 Intake Total 2600 ml Balance 2600 ml Intake Oral 800 ml IV Total 1800 ml # Voids 3 Exam HEENT pupils are reactive Neck is supple CV is S1-S2 regular rate and rhythm Respiratory viral clear GI posterior bowel sounds, soft nondistended, nontender diffusely but positive left CVA tenderness Extremity no edema CERTIFIED PROSTHETIST/ORTHOTIST no motor deficit Medications Current Medications Medications Dose Ordered Sig/Lamberto Route Start Time Stop Time Status Last Admin Dose Admin Diagnostic Test (Pha) 1 strip ACHS 08/21/24 11:30 08/23/24 11:23 1 STRIP Insulin Human Regular ACHS SC 08/21/24 11:30 08/23/24 11:36 6 UNITS Dextrose 50 ml UD PRN IV 08/21/24 08:45 Acetaminophen/ Hydrocodone Bitart 1 tab Q4HP PRN PO 08/21/24 10:30 08/23/24 08:13 1 TAB Ondansetron HCl 4 mg Q4HP PRN IV 08/21/24 10:30 Enoxaparin Sodium 40 mg DAILY SC 08/22/24 10:00 08/23/24 08:13 40 MG Acetaminophen 650 mg Q6HP PRN PO 08/21/24 10:30 Morphine Sulfate 2 mg Q4HPRN PRN IV 08/21/24 10:30 08/22/24 08:27 2 MG Gabapentin 300 mg TID PO 08/21/24 14:00 08/23/24 13:31 300 MG Amlodipine Besylate 10 mg DAILY PO 08/22/24 10:00 08/23/24 08:13 10 MG Patient Own Medication 1 cap HS PO 08/21/24 22:00 08/22/24 21:20 1 CAP Insulin Glargine 10 units TID SC 08/21/24 22:00 08/23/24 13:34 10 UNITS Meropenem 50 ml @ 17 mls/hr Q8HR IV 08/22/24 22:00 08/23/24 13:31 17 MLS/HR Sodium Chloride 1,000 ml @ 150 mls/hr Q6H40M IV 08/22/24 18:30 08/23/24 08:08 150 MLS/HR Docusate Sodium 100 mg BIDPRN PRN PO 08/22/24 19:00 08/23/24 02:22 100 MG Laboratory Results Laboratory Tests 08/22/24 04:05 Urinalysis Test 08/21/24 08:22 Urine Color Colorless (Yellow) Urine Clarity Clear (Clear) Urine pH 5.5 (5.0-9.0) Urine Specific [place] 1.018 (1.001-1.035) Urine Protein Trace (Negative) H Urine Ketones Negative (Negative) Urine Blood Negative /uL (Negative) Urine Nitrite Negative (Negative) Urine Bilirubin Negative (Negative) Urine Urobilinogen Normal mg/dL (Negative) Urine Leukocyte Esterase 1+ /uL (Negative) Urine RBC 3 /hpf (0 - 4) Urine Microscopic WBC 15 /HPF (0-5) H Urine Squamous Epithelial Cells Few /hpf (<5) Urine Bacteria Few /hpf (None Seen) H Urine Glucose 4+ mg/dL (Normal) H Assessment/Plan Assessment/Plan 54-year-old female with a known history of diabetes mellitus type 2 insulin dependent, hypertension initially admitted to the hospital with left flank pain on and off for last three months found to have 1. Left flank pain with the air in the urine rule out emphysematous cystitis 2. UTI, clinical suspicion of emphysematous cystitis 3. Hyperglycemia in the setting of insulin-dependent diabetes mellitus type 2 4. Hypertension -UA, urine culture, broad-spectrum IV antibiotics, infectious disease and urology consultation -CT abdomen with the p.o. and IV contrast showed evidence of emphysematous cystitis. Plan discussed with: Patient My Orders Orders - RUBI PAULINO MD Procedure Category Date Status Time Sodium Chloride 0.9% PHA 08/22/24 In Process 18:30 Docusate Sodium PHA 08/22/24 In Process Capsule (Colace 19:00 Consistent DIET 08/23/24 Transmitted Carb(Ccho)Diabetes Dinner Date of Service: Aug 23, 2024 Billing Provider: RUBI PAULINO MD Common Visit Codes: [id number] INP/OBS CARE(MOD) RUBI PAULINO MD Aug 23, 2024 16:03
[2024-08-24] VITALS (8 sets, daily range): BP systolic 113–133; BP diastolic 64–86; PULSE 67–78; RESP 14–18; TEMP 97.7–98; O2SAT 92–100
--- NOTE | 2024-08-24 09:48 | DVHPN2 ---
Progress Note - Dictate Date Seen: Aug 24, 2024 Subjective Patient does not have Jin catheter. Folic acid was recommended as patient was initially refusing. vital signs Vital Sign Date Time Temp Pulse Resp B/P (MAP) Pulse Ox O2 Delivery O2 Flow Rate FiO2 08/24/24 08:21 97.9 75 18 132/86 (101) 100 97.9 08/23/24 20:00 Room Air* 0 21 Total Intake and Output 08/23/24 08/23/24 08/24/24 15:00 23:00 07:00 Intake Total 50 ml 50 ml 2300 ml Output Total 950 ml 800 ml Balance 50 ml -900 ml 1500 ml medications Current Medications Medications Dose Ordered Sig/Lamberto Route Start Time Stop Time Status Last Admin Dose Admin Diagnostic Test (Pha) 1 strip ACHS 08/21/24 11:30 08/24/24 05:38 1 STRIP Insulin Human Regular ACHS SC 08/21/24 11:30 08/24/24 05:39 6 UNITS Dextrose 50 ml UD PRN IV 08/21/24 08:45 Acetaminophen/ Hydrocodone Bitart 1 tab Q4HP PRN PO 08/21/24 10:30 08/23/24 22:10 1 TAB Ondansetron HCl 4 mg Q4HP PRN IV 08/21/24 10:30 Enoxaparin Sodium 40 mg DAILY SC 08/22/24 10:00 08/23/24 08:13 40 MG Acetaminophen 650 mg Q6HP PRN PO 08/21/24 10:30 Morphine Sulfate 2 mg Q4HPRN PRN IV 08/21/24 10:30 08/22/24 08:27 2 MG Gabapentin 300 mg TID PO 08/21/24 14:00 08/24/24 05:31 300 MG Amlodipine Besylate 10 mg DAILY PO 08/22/24 10:00 08/23/24 08:13 10 MG Patient Own Medication 1 cap HS PO 08/21/24 22:00 08/23/24 21:18 1 CAP Insulin Glargine 10 units TID SC 08/21/24 22:00 08/24/24 05:36 10 UNITS Meropenem 50 ml @ 17 mls/hr Q8HR IV 08/22/24 22:00 08/24/24 05:31 17 MLS/HR Sodium Chloride 1,000 ml @ 150 mls/hr Q6H40M IV 08/22/24 18:30 08/24/24 03:50 150 MLS/HR Docusate Sodium 100 mg BIDPRN PRN PO 08/22/24 19:00 08/23/24 02:22 100 MG objective General Appearance: Alert, Oriented X3, Cooperative, No acute distress HEENT: Atraumatic, PERRLA, EOMI, Mucous membr. moist/pink Respiratory: Clear to auscultation, Normal air movement Cardiovascular: Normal S1, Normal S2, No murmurs Abdominal: Normal bowel sounds, Soft, No tenderness, No hepatospenomegaly, No masses Extremities: No clubbing, No cyanosis, No edema, Normal pulses, No tenderness/swelling Skin: No rashes, No significant lesion Neuro: Normal gait, Normal speech, Strength at 5/5 X4 ext, Normal tone, Sensation intact Psych/Mental Status: Mental status NL, Mood NL laboratory and microbiology Laboratory Tests 08/22/24 04:05 Test 08/22/24 04:05 Range/Units Serum Glucose 209 H 74-106 mg/dL Assessment/Plan Patient is a 54-year-old female presents to the hospital with: UTI Intractable abdominal pain Left-sided flank pain Hyponatremia EVANS Diabetes type 2 uncontrolled History of hypertension History of Recommendations: Continue Meropenem Patient is afebrile Patient need repeat CT Antibiotic status: Meropenem IV [Started on 08/22 - Ongoing] 08/22, Abdomen/Pelvis CT showed No findings of bowel obstruction.No hydronephrosis. Contrast is opacifying the renal parenchyma but there is no contrast or gas in the collecting system. Gas is noted in the bladder. The bladder is urine distended findings are still consistent with emphysematous cystitis unimproved from 08/21/2024. There does not appear to be any fistulous tract or contrast from the small bowel is communicating with the bladder. A 3.1 cm soft tissue mass in the subcutaneous fat overlying the right gluteal area posteriorly tissue density is 25 Hounsfield units. 08/21, Renal US showed Mild right renal pelviectasis. There is no sonographic evidence of nephrolithiasis. Thank you for consult. ROBERTA GRIFFITHS MD Aug 24, 2024 09:48
--- NOTE | 2024-08-24 16:22 | DVHPN2 ---
Subjective Overnight events noted. Patient does not have Jin catheter. Patient was complaining of left flank pain. Changes from previous H/P or p: No Changes Gastrointestinal: Abdominal Pain Genitourinary: Dysuria Musculoskeletal: other (Left flank pain) Objective Vitals Vital Signs Date Time Temp Pulse Resp B/P (MAP) Pulse Ox O2 Delivery O2 Flow Rate FiO2 08/24/24 13:00 97.7 77 18 117/71 (86) 100 97.7 08/24/24 08:00 Room Air* 0 21 Intake/Output Intake and Output 08/24/24 07:00 Intake Total 2400 ml Output Total 1750 ml Balance 650 ml Intake Oral 500 ml IV Total 1900 ml Output Urine Total 1750 ml # Voids 5 # Bowel Movements 1 Exam HEENT pupils are reactive Neck is supple CV is S1-S2 regular rate and rhythm Respiratory viral clear GI posterior bowel sounds, soft nondistended, nontender diffusely but positive left CVA tenderness Extremity no edema [employer]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 Medications Current Medications Medications Dose Ordered Sig/Lamberto Route Start Time Stop Time Status Last Admin Dose Admin Diagnostic Test (Pha) 1 strip ACHS 08/21/24 11:30 08/24/24 05:38 1 STRIP Insulin Human Regular ACHS SC 08/21/24 11:30 08/24/24 05:39 6 UNITS Dextrose 50 ml UD PRN IV 08/21/24 08:45 Acetaminophen/ Hydrocodone Bitart 1 tab Q4HP PRN PO 08/21/24 10:30 08/23/24 22:10 1 TAB Ondansetron HCl 4 mg Q4HP PRN IV 08/21/24 10:30 Enoxaparin Sodium 40 mg DAILY SC 08/22/24 10:00 08/24/24 10:37 40 MG Acetaminophen 650 mg Q6HP PRN PO 08/21/24 10:30 Morphine Sulfate 2 mg Q4HPRN PRN IV 08/21/24 10:30 08/22/24 08:27 2 MG Gabapentin 300 mg TID PO 08/21/24 14:00 08/24/24 15:13 300 MG Amlodipine Besylate 10 mg DAILY PO 08/22/24 10:00 08/24/24 10:37 10 MG Patient Own Medication 1 cap HS PO 08/21/24 22:00 08/23/24 21:18 1 CAP Insulin Glargine 10 units TID SC 08/21/24 22:00 08/24/24 15:13 10 UNITS Meropenem 50 ml @ 17 mls/hr Q8HR IV 08/22/24 22:00 08/24/24 15:14 17 MLS/HR Sodium Chloride 1,000 ml @ 150 mls/hr Q6H40M IV 08/22/24 18:30 08/24/24 10:37 150 MLS/HR Docusate Sodium 100 mg BIDPRN PRN PO 08/22/24 19:00 08/23/24 02:22 100 MG Laboratory Results Laboratory Tests 08/22/24 04:05 Urinalysis Test 08/24/24 15:21 Urine Color Pending Urine Clarity Pending Urine pH Pending Urine Specific [place] Pending Urine Protein Pending Urine Ketones Pending Urine Blood Pending Urine Nitrite Pending Urine Bilirubin Pending Urine Urobilinogen Pending Urine Leukocyte Esterase Pending Urine RBC Pending Urine Microscopic WBC Pending Urine Squamous Epithelial Cells Pending Urine Bacteria Pending Urine Glucose Pending Assessment/Plan Assessment/Plan 54-year-old female with a known history of diabetes mellitus type 2 insulin dependent, hypertension initially admitted to the hospital with left flank pain on and off for last three months found to have 1. Left flank pain with the air in the urine rule out emphysematous cystitis 2. UTI, clinical suspicion of emphysematous cystitis 3. Hyperglycemia in the setting of insulin-dependent diabetes mellitus type 2 4. Hypertension -UA, urine culture, broad-spectrum IV antibiotics, infectious disease and urology consultation -CT abdomen with the p.o. and IV contrast showed evidence of emphysematous cystitis. -continue IV antibiotics, discharge plan on p.o. antibiotics and maybe with Jin catheter has been Plan discussed with: Patient My Orders Orders - RUBI PAULINO MD Procedure Category Date Status Time Urinalysis LAB 08/24/24 In Process 15:21 Date of Service: Aug 25, 2024 Billing Provider: RUBI PAULINO MD Common Visit Codes: [id number] INP/OBS CARE(MOD) RUBI PAULINO MD Aug 24, 2024 16:22
[2024-08-24 17:44] LABS: Urine Bacteria FEW /hpf (None Seen); Urine Blood TRACE /uL (Negative); Urine Clarity Clear (Clear); Urine Color Light-Yellow (Yellow); Urine Hyaline Cast FEW /lpf (0 - 2); Urine Protein, UAD 1+ (Negative); Urine Specific Gravity 1.013 (1.001-1.035); Urine Squamous Epithelial Cell None Seen /hpf (<5); Urine Urobilinogen Normal (Negative); Urine WBC 3 /HPF (0-5)
[2024-08-25] VITALS (8 sets, daily range): BP systolic 110–142; BP diastolic 67–80; PULSE 65–75; RESP 14–18; TEMP 97.6–98.3; O2SAT 96–98
[2024-08-25] MEDS: ACETAMINOPHEN 325 MG TAB PO PRN (06:09)
[2024-08-25] MEDS ORDERED: ALPRAZolam 0.5 MG TAB PO PRN (11:30)
--- NOTE | 2024-08-25 18:01 | DVHPN2 ---
Subjective Overnight events noted. Patient does not have Jin catheter. Patient was complaining of left flank pain. Changes from previous H/P or p: No Changes Gastrointestinal: Abdominal Pain Genitourinary: Dysuria Musculoskeletal: other (Left flank pain) Objective Vitals Vital Signs Date Time Temp Pulse Resp B/P (MAP) Pulse Ox O2 Delivery O2 Flow Rate FiO2 08/25/24 17:00 98.3 71 18 142/80 (100) 96 98.3 08/25/24 08:00 Room Air* 0 21 Intake/Output Intake and Output 08/25/24 07:00 Intake Total 3250 ml Output Total 3850 ml Balance -600 ml Intake Oral 2000 ml IV Total 1250 ml Output Urine Total 3850 ml # Bowel Movements 2 Exam HEENT pupils are reactive Neck is supple CV is S1-S2 regular rate and rhythm Respiratory viral clear GI posterior bowel sounds, soft nondistended, nontender diffusely but positive left CVA tenderness 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 Medications Current Medications Medications Dose Ordered Sig/Lamberto Route Start Time Stop Time Status Last Admin Dose Admin Diagnostic Test (Pha) 1 strip ACHS 08/21/24 11:30 08/25/24 17:56 1 STRIP Insulin Human Regular ACHS SC 08/21/24 11:30 08/25/24 17:57 4 UNITS Dextrose 50 ml UD PRN IV 08/21/24 08:45 Acetaminophen/ Hydrocodone Bitart 1 tab Q4HP PRN PO 08/21/24 10:30 08/24/24 22:28 1 TAB Ondansetron HCl 4 mg Q4HP PRN IV 08/21/24 10:30 Enoxaparin Sodium 40 mg DAILY SC 08/22/24 10:00 08/25/24 09:07 40 MG Acetaminophen 650 mg Q6HP PRN PO 08/21/24 10:30 08/25/24 13:24 650 MG Morphine Sulfate 2 mg Q4HPRN PRN IV 08/21/24 10:30 08/22/24 08:27 2 MG Gabapentin 300 mg TID PO 08/21/24 14:00 08/25/24 13:45 300 MG Amlodipine Besylate 10 mg DAILY PO 08/22/24 10:00 08/25/24 09:07 10 MG Patient Own Medication 1 cap HS PO 08/21/24 22:00 08/23/24 21:18 1 CAP Insulin Glargine 10 units TID SC 08/21/24 22:00 08/25/24 13:46 10 UNITS Meropenem 50 ml @ 17 mls/hr Q8HR IV 08/22/24 22:00 08/25/24 13:45 17 MLS/HR Sodium Chloride 1,000 ml @ 150 mls/hr Q6H40M IV 08/22/24 18:30 08/25/24 13:12 150 MLS/HR Docusate Sodium 100 mg BIDPRN PRN PO 08/22/24 19:00 08/23/24 02:22 100 MG Alprazolam 0.5 mg [id number] PRN PO 08/25/24 11:30 Laboratory Results Laboratory Tests 08/22/24 04:05 Urinalysis Test 08/24/24 15:21 Urine Color Light-yellow (Yellow) Urine Clarity Clear (Clear) Urine pH 6.0 (5.0-9.0) Urine Specific [place] 1.013 (1.001-1.035) Urine Protein 1+ (Negative) H Urine Ketones Negative (Negative) Urine Blood Trace /uL (Negative) H Urine Nitrite Negative (Negative) Urine Bilirubin Negative (Negative) Urine Urobilinogen Normal mg/dL (Negative) Urine Leukocyte Esterase Negative /uL (Negative) Urine RBC 1 /hpf (0 - 4) Urine Microscopic WBC 3 /HPF (0-5) Urine Squamous Epithelial Cells None seen /hpf (<5) Urine Bacteria Few /hpf (None Seen) H Urine Hyaline Casts Few /lpf (0 - 2) Urine Glucose 4+ mg/dL (Normal) H Microbiology Microbiology Date/Time Source Procedure Growth Status 08/24/24 15:21 Voided Urine Urine Culture - Preliminary Resulted Assessment/Plan Assessment/Plan 54-year-old female with a known history of diabetes mellitus type 2 insulin dependent, hypertension initially admitted to the hospital with left flank pain on and off for last three months found to have 1. Left flank pain with the air in the urine rule out emphysematous cystitis 2. UTI, clinical suspicion of emphysematous cystitis 3. Hyperglycemia in the setting of insulin-dependent diabetes mellitus type 2 4. Hypertension -UA, urine culture, broad-spectrum IV antibiotics, infectious disease and urology consultation -CT abdomen with the p.o. and IV contrast showed evidence of emphysematous cystitis. -continue IV antibiotics, discharge plan on p.o. antibiotics and maybe with Jin catheter has been Plan discussed with: Patient My Orders Orders - RUBI PAULINO MD Procedure Category Date Status Time Alprazolam Tablet PHA 08/25/24 In Process (Xanax Tablet) 11:30 Date of Service: Aug 25, 2024 Billing Provider: RUBI PAULINO MD Common Visit Codes: [id number] INP/OBS CARE(MOD) RUBI PAULINO MD Aug 25, 2024 18:01
--- NOTE | 2024-08-25 21:39 | DVHPN2 ---
Progress Note - Dictate Date Seen: Aug 25, 2024 Subjective Patient reports left flank pain. She does not have Jin catheter. vital signs Vital Sign Date Time Temp Pulse Resp B/P (MAP) Pulse Ox O2 Delivery O2 Flow Rate FiO2 08/25/24 21:00 98.2 75 18 125/73 (90) 96 98.2 08/25/24 08:00 Room Air* 0 21 Total Intake and Output 08/24/24 08/24/24 08/25/24 15:00 23:00 07:00 Intake Total 2700 ml 550 ml Output Total 2700 ml 1150 ml Balance 0 ml -600 ml medications Current Medications Medications Dose Ordered Sig/Lamberto Route Start Time Stop Time Status Last Admin Dose Admin Diagnostic Test (Pha) 1 strip ACHS 08/21/24 11:30 08/25/24 17:56 1 STRIP Insulin Human Regular ACHS SC 08/21/24 11:30 08/25/24 17:57 4 UNITS Dextrose 50 ml UD PRN IV 08/21/24 08:45 Acetaminophen/ Hydrocodone Bitart 1 tab Q4HP PRN PO 08/21/24 10:30 08/24/24 22:28 1 TAB Ondansetron HCl 4 mg Q4HP PRN IV 08/21/24 10:30 Enoxaparin Sodium 40 mg DAILY SC 08/22/24 10:00 08/25/24 09:07 40 MG Acetaminophen 650 mg Q6HP PRN PO 08/21/24 10:30 08/25/24 13:24 650 MG Morphine Sulfate 2 mg Q4HPRN PRN IV 08/21/24 10:30 08/22/24 08:27 2 MG Gabapentin 300 mg TID PO 08/21/24 14:00 08/25/24 13:45 300 MG Amlodipine Besylate 10 mg DAILY PO 08/22/24 10:00 08/25/24 09:07 10 MG Patient Own Medication 1 cap HS PO 08/21/24 22:00 08/23/24 21:18 1 CAP Insulin Glargine 10 units TID SC 08/21/24 22:00 08/25/24 13:46 10 UNITS Meropenem 50 ml @ 17 mls/hr Q8HR IV 08/22/24 22:00 08/25/24 13:45 17 MLS/HR Sodium Chloride 1,000 ml @ 150 mls/hr Q6H40M IV 08/22/24 18:30 08/25/24 13:12 150 MLS/HR Docusate Sodium 100 mg BIDPRN PRN PO 08/22/24 19:00 08/23/24 02:22 100 MG Alprazolam 0.5 mg [id number] PRN PO 08/25/24 11:30 objective General Appearance: Alert, Oriented X3, Cooperative, No acute distress HEENT: Atraumatic, PERRLA, EOMI, Mucous membr. moist/pink Respiratory: Clear to auscultation, Normal air movement Cardiovascular: Normal S1, Normal S2, No murmurs Abdominal: Normal bowel sounds, Soft, No tenderness, No hepatospenomegaly, No masses Extremities: No clubbing, No cyanosis, No edema, Normal pulses, No tenderness/swelling Skin: No rashes, No significant lesion Neuro: Normal gait, Normal speech, Strength at 5/5 X4 ext, Normal tone, Sensation intact Psych/Mental Status: Mental status NL, Mood NL laboratory and microbiology Laboratory Tests 08/22/24 04:05 Test 08/22/24 04:05 Range/Units Serum Glucose 209 H 74-106 mg/dL Assessment/Plan Patient is a 54-year-old female presents to the hospital with: UTI Intractable abdominal pain Left-sided flank pain Hyponatremia EVANS Diabetes type 2 uncontrolled History of hypertension History of Recommendations: Continue Meropenem Patient is afebrile Patient need repeat CT Antibiotic status: Meropenem IV [Started on 08/22 - Ongoing] 08/24, Urine culture preliminary showed no growth 08/22, Abdomen/Pelvis CT showed No findings of bowel obstruction.No hydronephrosis. Contrast is opacifying the renal parenchyma but there is no contrast or gas in the collecting system. Gas is noted in the bladder. The bladder is urine distended findings are still consistent with emphysematous cystitis unimproved from 08/21/2024. There does not appear to be any fistulous tract or contrast from the small bowel is communicating with the bladder. A 3.1 cm soft tissue mass in the subcutaneous fat overlying the right gluteal area posteriorly tissue density is 25 Hounsfield units. 08/21, Renal US showed Mild right renal pelviectasis. There is no sonographic evidence of nephrolithiasis. Thank you for consult. Dietary Evaluation Review Comments: 1. Agree w/ current diet order, continue CHO Consistent 60 gm/meal 2. Lantus added 08/21, still some hyperglycemia; adjust ss insulin and lantus accordingly to maintain BG <180 mg/dl while inpatient 3. Continue frequent POC BG checks 4. Noted A1c >14% (08/21/24), would benefit from outpatient DM education w/ CDCES for increased support Expected Outcomes/Goals: Improved glycemic control, weight maintenance, adequate oral intakes. ROBERTA GRIFFITHS MD Aug 25, 2024 21:39
[2024-08-26 05:00] VITALS: BP 142/90; PULSE 73; RESP 18; TEMP 97.4; O2SAT 99
[2024-08-26 08:10] VITALS: PULSE 65; RESP 16; O2SAT 97
[2024-08-26 09:00] VITALS: BP 135/94; PULSE 66; RESP 17; TEMP 98; O2SAT 97
--- NOTE | 2024-08-26 09:58 | DVHPN2 ---
Progress Note - Dictate Date Seen: Aug 26, 2024 Subjective Patient is expecting to be discharged today. vital signs Vital Sign Date Time Temp Pulse Resp B/P (MAP) Pulse Ox O2 Delivery O2 Flow Rate FiO2 08/26/24 09:00 98.0 66 17 135/94 (108) 97 98.0 08/25/24 20:00 Room Air* 0 21 Total Intake and Output 08/25/24 08/25/24 08/26/24 15:00 23:00 07:00 Intake Total 1560 ml 1330 ml Output Total 2350 ml 1750 ml Balance -790 ml -420 ml medications Current Medications Medications Dose Ordered Sig/Lamberto Route Start Time Stop Time Status Last Admin Dose Admin Diagnostic Test (Pha) 1 strip ACHS 08/21/24 11:30 08/26/24 06:24 1 STRIP Insulin Human Regular ACHS SC 08/21/24 11:30 08/26/24 06:24 6 UNITS Dextrose 50 ml UD PRN IV 08/21/24 08:45 Acetaminophen/ Hydrocodone Bitart 1 tab Q4HP PRN PO 08/21/24 10:30 08/24/24 22:28 1 TAB Ondansetron HCl 4 mg Q4HP PRN IV 08/21/24 10:30 Enoxaparin Sodium 40 mg DAILY SC 08/22/24 10:00 08/25/24 09:07 40 MG Acetaminophen 650 mg Q6HP PRN PO 08/21/24 10:30 08/26/24 06:40 650 MG Morphine Sulfate 2 mg Q4HPRN PRN IV 08/21/24 10:30 08/22/24 08:27 2 MG Gabapentin 300 mg TID PO 08/21/24 14:00 08/26/24 06:34 300 MG Amlodipine Besylate 10 mg DAILY PO 08/22/24 10:00 08/25/24 09:07 10 MG Patient Own Medication 1 cap HS PO 08/21/24 22:00 08/23/24 21:18 1 CAP Insulin Glargine 10 units TID SC 08/21/24 22:00 08/26/24 06:29 10 UNITS Meropenem 50 ml @ 17 mls/hr Q8HR IV 08/22/24 22:00 08/25/24 21:39 17 MLS/HR Sodium Chloride 1,000 ml @ 150 mls/hr Q6H40M IV 08/22/24 18:30 08/26/24 02:56 150 MLS/HR Docusate Sodium 100 mg BIDPRN PRN PO 08/22/24 19:00 08/23/24 02:22 100 MG Alprazolam 0.5 mg [id number] PRN PO 08/25/24 11:30 objective General Appearance: Alert, Oriented X3, Cooperative, No acute distress HEENT: Atraumatic, PERRLA, EOMI, Mucous membr. moist/pink Respiratory: Clear to auscultation, Normal air movement Cardiovascular: Normal S1, Normal S2, No murmurs Abdominal: Normal bowel sounds, Soft, No tenderness, No hepatospenomegaly, No masses Extremities: No clubbing, No cyanosis, No edema, Normal pulses, No tenderness/swelling Skin: No rashes, No significant lesion Neuro: Normal gait, Normal speech, Strength at 5/5 X4 ext, Normal tone, Sensation intact Psych/Mental Status: Mental status NL, Mood NL laboratory and microbiology Laboratory Tests 08/22/24 04:05 Test 08/22/24 04:05 Range/Units Serum Glucose 209 H 74-106 mg/dL Assessment/Plan Patient is a 54-year-old female presents to the hospital with: UTI Intractable abdominal pain Left-sided flank pain Hyponatremia EVANS Diabetes type 2 uncontrolled History of hypertension History of Recommendations: Continue Meropenem Patient is afebrile Antibiotic status: Meropenem IV [Started on 08/22 - Ongoing] 08/24, Urine culture preliminary showed no growth 08/22, Abdomen/Pelvis CT showed No findings of bowel obstruction.No hydronephrosis. Contrast is opacifying the renal parenchyma but there is no contrast or gas in the collecting system. Gas is noted in the bladder. The bladder is urine distended findings are still consistent with emphysematous cystitis unimproved from 08/21/2024. There does not appear to be any fistulous tract or contrast from the small bowel is communicating with the bladder. A 3.1 cm soft tissue mass in the subcutaneous fat overlying the right gluteal area posteriorly tissue density is 25 Hounsfield units. 08/21, Renal US showed Mild right renal pelviectasis. There is no sonographic evidence of nephrolithiasis. Thank you for consult. Dietary Evaluation Review Comments: 1. Agree w/ current diet order, continue CHO Consistent 60 gm/meal 2. Lantus added 08/21, still some hyperglycemia; adjust ss insulin and lantus accordingly to maintain BG <180 mg/dl while inpatient 3. Continue frequent POC BG checks 4. Noted A1c >14% (08/21/24), would benefit from outpatient DM education w/ CDCES for increased support Expected Outcomes/Goals: Improved glycemic control, weight maintenance, adequate oral intakes. ROBERTA GRIFFITHS MD Aug 26, 2024 09:58
[2024-08-26 13:00] VITALS: BP 141/80; PULSE 69; RESP 18; TEMP 98.2; O2SAT 98
[2024-08-26] MEDS ORDERED: CEFD300C2 PO (15:25)
[2024-08-26] MEDS ORDERED: HYDR-4902 PO (15:33)
--- NOTE | 2024-08-26 15:37 | DVHDS2 ---
Discharge Summary Date of Admission Aug 21, 2024 at 10:29 Date of Discharge: Aug 26, 2024 Labs/Diagnostic Data: Laboratory Results Test 08/26/24 14:50 08/24/24 15:21 08/22/24 04:05 08/21/24 08:30 POC Glucose 247 mg/dl (70-106) Urine Color Light-yellow (Yellow) Urine Clarity Clear (Clear) Urine pH 6.0 (5.0-9.0) Urine Specific [place] 1.013 (1.001-1.035) Urine Protein 1+ (Negative) Urine Ketones Negative (Negative) Urine Blood Trace /uL (Negative) Urine Nitrite Negative (Negative) Urine Bilirubin Negative (Negative) Urine Urobilinogen Normal mg/dL (Negative) Urine Leukocyte Esterase Negative /uL (Negative) Urine RBC 1 /hpf (0 - 4) Urine Microscopic WBC 3 /HPF (0-5) Urine Squamous Epithelial Cells None seen /hpf (<5) Urine Bacteria Few /hpf (None Seen) Urine Hyaline Casts Few /lpf (0 - 2) Urine Glucose 4+ mg/dL (Normal) White Blood Count 4.5 10^3/uL (4.4-10.8) Red Blood Count 5.54 10^6/uL (4.0-5.20) Hemoglobin 14.4 g/dL (12.2-16.2) Hematocrit 44.0 % (36.0-46.0) Mean Corpuscular Volume 79.5 fL (80.0-100.0) Mean Corpuscular Hemoglobin 26.0 pg (28.0-32.0) Mean Corpuscular Hemoglobin Concent 32.7 g/dL (32.0-36.0) Red Cell Distribution Width 13.7 % (11.8-14.3) Platelet Count 267 10^3/uL (140-450) Mean Platelet Volume 9.2 fL (6.9-10.8) Neutrophils (%) (Auto) 33.6 % (37.0-80.0) Lymphocytes (%) (Auto) 55.7 % (10.0-50.0) Monocytes (%) (Auto) 6.3 % (0.0-12.0) Eosinophils (%) (Auto) 3.5 % (0.0-7.0) Basophils (%) (Auto) 0.9 % (0.0-2.0) Neutrophils # (Auto) 1.5 10 ^3/uL (1.6-8.6) Lymphocytes # (Auto) 2.5 10 ^3/uL (0.4-5.4) Monocytes # (Auto) 0.3 10 ^3/uL (0-1.3) Eosinophils # (Auto) 0.2 10 ^3/uL (0-0.8) Basophils # (Auto) 0 10 ^3/uL (0-0.2) Nucleated Red Blood Cells 0.7 % Sodium Level 134 mmol/L (136-145) Potassium Level 3.8 mmol/L (3.5-5.1) Chloride Level 98 mmol/L (98-107) Carbon Dioxide Level 28 mmol/L (20-31) Anion Gap 8 (5-15) Blood Urea Nitrogen 17 mg/dL (9-23) Creatinine 0.78 mg/dL (0.550-1.02) Glomerular Filtration Rate Calc 91 mL/min (>90) BUN/Creatinine Ratio 21.8 (10.0-20.0) Serum Glucose 209 mg/dL (74-106) Calcium Level 11.8 mg/dL (8.7-10.4) Total Bilirubin 0.5 mg/dL (0.2-1.0) Aspartate Amino Transferase (AST) 29 U/L (13-40) Alanine Aminotransferase (ALT) 34 U/L (7-40) Alkaline Phosphatase 174 U/L (46-116) Total Protein 8.2 g/dL (5.7-8.2) Albumin 4.4 g/dL (3.2-4.8) Hemoglobin A1c > 14.0 % A1C (<5.7) Other Laboratory Tests 08/22/24 04:05 Brief Hx & Hospital Course: 54-year-old female with a known history of diabetes mellitus type 2 insulin dependent, hypertension initially admitted to the hospital with left flank pain on and off for last three months found to have left flank pain with the air in the urine ruled in emphysematous cystitis. Patient was treated with a broad- spectrum IV antibiotics. Infectious Disease and Urology was consulted. Patient was recommended to have Jin catheter placement. Patient was cleared by Infectious Disease and Urology to be discharged with 10 more days of p.o. antibiotics. Patient was did receive IV antibiotics during the hospital stay. Patient was recommended to return to ER if there is any fevers she was worsening flank pain or any concern. Patient was to follow up with the PCP, infectious disease specialist, Urology as an outpatient in 1-2 weeks. Condition at Discharge: Stable Final Diagnosis/Problems List 54-year-old female with a known history of diabetes mellitus type 2 insulin dependent, hypertension initially admitted to the hospital with left flank pain on and off for last three months found to have 1. Left flank pain with the air in the urine rule out emphysematous cystitis 2. UTI, clinical suspicion of emphysematous cystitis 3. Hyperglycemia in the setting of insulin-dependent diabetes mellitus type 2 4. Hypertension Discharge Disposition: Home SNF Discharge Will this Physician continue t: No Discharge Instruct/Medications Diet: Cardiac 2g Na,low cholest Diet comment: 1800 ADA diet Activity: See Comment Activity comment: Driving, no signing of legal documents, no planning on heavy machinery while on narcotics Follow Up/Referral: Follow up with the PCP in 1-2 weeks Follow up with the Urology in 1weeks Follow up with the Infectious Disease in one week Medications: cefdinir and [place] as prescribed Discharge Statement: "Patient was advised to return to the ER or call 911 if any headaches, dizziness, shortness of breath, chest pain, abdominal pain, bleeding, fevers, or worsening of medical condition. Patient was counseled about treatment plan, medications, possible side effects, patientverbalized understanding. All questions were answered to the best of my ability. This discharge took greater then 30 minutes in planning, reviewing documentation, counseling the patient, and discussing with other team members." ASSESSMENT ASSESSMENT Assessment 54-year-old female with a known history of diabetes mellitus type 2 insulin dependent, hypertension initially admitted to the hospital with left flank pain on and off for last three months found to have 1. Left flank pain with the air in the urine rule out emphysematous cystitis 2. UTI, clinical suspicion of emphysematous cystitis 3. Hyperglycemia in the setting of insulin-dependent diabetes mellitus type 2 4. Hypertension Date of Service: Aug 26, 2024 Billing Provider: RUBI PAULINO MD Common Visit Codes: 16848-TXR/OBS DISCH DAY >30min RUBI PAULINO MD Aug 26, 2024 15:36
[2024-08-26 17:00] VITALS: BP 135/71; PULSE 72; RESP 18; TEMP 98.1; O2SAT 96
[2024-08-26 17:24] VITALS: BP 135/71; PULSE 72; RESP 18; TEMP 36.7; O2SAT 96
== END 2024-08-26 19:40 | disposition home or self-care (01) | DRG 463 ==
LOC: ER 07:57 → OVERFLOW 10:29 → EAST 08-22 17:50
PROVIDERS: ADMIT Internal Medicine; ATTEND Internal Medicine
DX: N30.80 Other cystitis without hematuria (principal); N17.0 Acute kidney failure with tubular necrosis; E11.00 Type 2 diabetes mellitus with hyperosmolarity without nonketotic hyperglycemic-hyperosmolar coma (NKHHC); E87.1 Hypo-osmolality and hyponatremia; I10 Essential (primary) hypertension; Z79.899 Other long term (current) drug therapy; Z79.4 Long term (current) use of insulin; Z83.3 Family history of diabetes mellitus; Z98.891 History of uterine scar from previous surgery
CPT/HCPCS: 36415; 74176; 74177; 76775; 80048; 80053; 81001; 82962; 83036; 85025; 87086; 96361; 96372; 96374; G0378; J1815; J2185